=== PATIENT | male | born 1985 | race Caucasian/White ===

== ENCOUNTER 2020-09-08 17:37 | Emergency (ER) | payer OTHER ==
[~2020-09-08] VITALS: Ht 188 cm; Wt 81.7 kg
[2020-09-08 20:05] VITALS: BP 102/75
== END 2020-09-08 20:06 | disposition home or self-care (01) ==
LOC: ER 17:37
DX: S01.112D Laceration without foreign body of left eyelid and periocular area, subsequent encounter (principal); F10.129 Alcohol abuse with intoxication, unspecified; M79.10 Myalgia, unspecified site; F90.9 Attention-deficit hyperactivity disorder, unspecified type; F31.9 Bipolar disorder, unspecified; Z88.1 Allergy status to other antibiotic agents; Z88.0 Allergy status to penicillin; W19.XXXD Unspecified fall, subsequent encounter

== ENCOUNTER 2021-06-18 11:09 | Emergency (ER) | payer OTHER ==
[~2021-06-18] VITALS: Ht 188 cm; Wt 81.7 kg
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
[2021-06-18 11:41] LABS: ABSOLUTE NEUTROPHILS 12.5 thou/uL (1.4-8.2); BASOPHILS 0.4 % (0.0-2.0); EOSINOPHILS 1.2 % (0.0-3.0); HEMATOCRIT 42.5 % (42.0-52.0); HEMOGLOBIN 13.8 gm/dL (14.0-18.0); LYMPHOCYTES 11.4 % (24.0-44.0); MCH 30.2 pg (26.0-34.0); MCHC 32.5 g/dL (28.0-37.0); MCV 93.1 fL (80.0-100.0); MONOCYTES 6.6 % (1.0-8.0); PLATELET COUNT 377 thou/uL (150-400); POLYS 80.4 % (36.0-66.0); RBC 4.57 mil/uL (4.50-6.00); WBC 15.6 thou/uL (4.0-11.0)
[2021-06-18 11:59] LABS: URINE BILIRUBIN NEGATIVE (Negative); URINE BLOOD NEGATIVE (Negative); URINE CLARITY CLEAR; URINE COLOR YELLOW; URINE GLUCOSE-RANDOM* NEGATIVE (Negative); URINE KETONES NEGATIVE (Negative); URINE LEUKOCYTES-REFLEX NEGATIVE (Negative); URINE NITRITE-REFLEX NEGATIVE (Negative); URINE PROTEIN (DIPSTICK) NEGATIVE (Negative); URINE SPECIFIC GRAVITY <= 1.005 (1.005-1.035); URINE UROBILINOGEN 0.2 E.U./dl (0.2-1.0)
[2021-06-18 12:02] LABS: CALCIUM 8.8 mg/dL (8.5-10.1); CREATININE 0.4 mg/dL (0.7-1.3)
[2021-06-18 12:07] LABS: ALBUMIN 3.6 g/dL (3.4-5.0); POTASSIUM 4.8 mmol/L (3.5-5.1); TOTAL BILIRUBIN 0.4 mg/dL (0.2-1.0); TOTAL PROTEIN 7.4 g/dL (6.4-8.2)
[2021-06-18 12:08] LABS: AMP/METHAMP Negative (Negative); BARBITURATES Negative (Negative); BENZODIAZEPINES Negative (Negative); COCAINE Negative (Negative); METHADONE Negative (Negative); OPIATES Negative (Negative); PCP Negative (Negative)
--- NOTE | 2021-06-18 12:46 | EKG ---
[address] [place] [address] ELECTROCARDIOGRAM REPORT Name: SANTI WOODARD [facility] [id number] Admission: 06/18/21 Attend Phys: Discharge: Date of : 89 Report #: [id number] [facility] ED Test Date: 2021-06-18 Test Time: 11:12:59 Pat Name: SANTI WOODARD Department: Room: Gender: M Public Interviewer: ANDREW : 1985 Requested By: Ama Joe Order Number: [id number] MD: Parveen Lizama Measurements Intervals [place] Rate: 64 P: 61 GA: 182 QRS: 54 QRSD: 93 T: 44 QT: 420 QTc: 434 Interpretive Statements Sinus rhythm Baseline wander in lead(s) I,II,aVR,V6 No previous ECG available for comparison Electronically Signed On 06-18-2021 12:46:23 CDT by Parveen Lizama [email or web address] <ELECTRONICALLY SIGNED> By: Parveen Lizama MD, [facility] 06/18/21 1246 1112 1112 Parveen Lizama MD, FACC /EPI
[2021-06-18 13:51] VITALS: BP 121/84
== END 2021-06-18 13:42 | disposition home or self-care (01) ==
LOC: ER 11:09
PROVIDERS: Nurse Practitioner Family
DX: F10.129 Alcohol abuse with intoxication, unspecified (principal); Y90.8 Blood alcohol level of 240 mg/100 ml or more; Z88.0 Allergy status to penicillin